=== PATIENT | male | born 1985 | race Caucasian/White ===

== ENCOUNTER 2018-06-18 03:45 | Emergency (ER) | payer SELFPAY ==
[~2018-06-18] VITALS: Ht 180.3 cm; Wt 77.1 kg
[2018-06-18 03:51] VITALS: BP 141/90
[2018-06-18] MEDS ORDERED: IBUPROFEN 800 MG TAB PO ONE (03:55)
--- NOTE | 2018-06-18 05:37 | NUR ---
Patient discharged with v/s stable. Patient states 3/10 pain at this time, patient acting appropriatly. Written and verbal after care instructions given and explained. Patient alert, oriented and verbalized understanding of instructions. Ambulatory with steady gate in custody by P+. All questions addressed prior to discharge. ID band removed. Patient advised to follow up with PMD. Rx of Ibuprofen given. Patient educated on indication of medication including possible reaction and side effects. Opportunity to ask questions provided and answered.
[2018-06-18 05:41] VITALS: BP 139/87
== END 2018-06-18 05:37 ==
LOC: MED 03:45
DX: S00.83XA Contusion of other part of head, initial encounter (principal); S20.20XA Contusion of thorax, unspecified, initial encounter; F10.129 Alcohol abuse with intoxication, unspecified; Z02.89 Encounter for other administrative examinations; V89.2XXA Person injured in unspecified motor-vehicle accident, traffic, initial encounter; Y93.89 Activity, other specified; Y92.89 Other specified places as the place of occurrence of the external cause; Y99.8 Other external cause status
CPT/HCPCS: 70150; 71100; 99283